=== PATIENT | male | born 1985 | race Caucasian/White ===

== ENCOUNTER 2016-11-08 16:58 | Inpatient (IN) | payer OTHER ==
[~2016-11-08] VITALS: Ht 175.3 cm; Wt 80.1 kg
[2016-11-08] MEDS ORDERED: ONDANSETRON 4 MG INJ IV STA ×2 (17:30→19:59)
[2016-11-08] MEDS ORDERED: KETOROLAC 15 MG INJ IV STA (17:30)
[2016-11-08] MEDS ORDERED: SOD CHLORIDE 0.9% 1,000 ML IV STA (17:30)
[2016-11-08] MEDS ORDERED: morphine 4 MG/ML VIAL IV STA (17:30)
[2016-11-08 18:06] LABS: ADD SCAN DIFF NO
[2016-11-08 18:08] LABS: BASOPHIL # 0.1 10^3/ul (0.0-0.1); BASOPHILS % 0.4 % (0.0-2.0); EOSINOPHILS # 0.4 10^3/ul (0.0-0.5); EOSINOPHILS % 3.9 % (0.0-7.0); HEMATOCRIT 46.2 % (42.0-52.0); HEMOGLOBIN 15.2 g/dl (14.0-18.0); LYMPHOCYTES # 2.3 10^3/ul (0.8-2.9); LYMPHOCYTES % 20.5 % (15.0-51.0); MEAN CORPUSCULAR HEMOGLOBIN 28.8 pg (29.0-33.0); MEAN CORPUSCULAR HGB CONC 32.9 g/dl (32.0-37.0); MEAN CORPUSCULAR VOLUME 87.7 fl (82.0-101.0); MEAN PLATELET VOLUME 10.9 fl (7.4-10.4); MONOCYTE # 0.5 10^3/ul (0.3-0.9); MONOCYTES % 4.6 % (0.0-11.0); NEUTROPHIL # 7.9 10^3/ul (1.6-7.5); NEUTROPHILS % 69.9 % (39.0-77.0); PLATELET COUNT 225 10^3/UL (140-415); RED BLOOD COUNT 5.27 10^6/ul (4.70-6.10); RED CELL DISTRIBUTION WIDTH 13.3 % (11.5-14.5); WHITE BLOOD COUNT 11.4 10^3/ul (4.8-10.8)
[2016-11-08 18:24] LABS: INR 0.93; PROTIME 12.5 Sec (12.2-14.2)
[2016-11-08 18:32] LABS: ALBUMIN/GLOBULIN RATIO 1.78; BILIRUBIN,INDIRECT 0.2 mg/dl (0-1.1); BILIRUBIN,TOTAL 0.2 mg/dl (0.2-1.3); CALCIUM 9.4 mg/dl (8.4-10.2); CREATININE 0.89 mg/dl (0.61-1.24); POTASSIUM 4.3 mmol/L (3.5-5.1); TOTAL PROTEIN 7.8 g/dl (6.1-8.1)
[2016-11-08 19:02] LABS: ADD UMIC YES; UR ASCORBIC ACID NEGATIVE (NEGATIVE); UR BILIRUBIN (Dip) NEGATIVE (NEGATIVE); UR BLOOD (Dip) 1+ mg/dL (NEGATIVE); UR CLARITY CLEAR (CLEAR); UR COLOR YELLOW (YELLOW); UR GLUCOSE (Dip) NEGATIVE (NEGATIVE); UR KETONES (Dip) TRACE mg/dL (NEGATIVE); UR LEUKOCYTE ESTERASE (Dip) NEGATIVE Leu/ul (NEGATIVE); UR NITRITE (Dip) NEGATIVE (NEGATIVE); UR RBC 4 /HPF (0-5); UR SPECIFIC GRAVITY (Dip) 1.014 (1.003-1.030); UR TOTAL PROTEIN (Dip) NEGATIVE (NEGATIVE); UR UROBILINOGEN (Dip) NEGATIVE (NEGATIVE)
[2016-11-08] MEDS ORDERED: OXYCODONE/ACETAMINOPHEN (5/325) TAB PO ONE (19:30)
[2016-11-08] MEDS ORDERED: HYDROmorphONE 1 MG/ML SYG IV STA (19:55)
[2016-11-08] MEDS ORDERED: SOD CHLORIDE 0.9% 1,000 ML IV ONE (20:00)
[2016-11-08] MEDS ORDERED: IOHEXOL 300MG/ML 150 ML BTL ONE (20:07)
[2016-11-08] MEDS ORDERED: SOD CHLORIDE 0.9% 0 ML ONE (20:07)
[2016-11-08] MEDS ORDERED: SOD CHLORIDE 0.9% 250 ML ONE (20:08)
[2016-11-08 21:09] VITALS: Ht 175.3 cm; Wt 80.1 kg
[2016-11-08 21:10] VITALS: BP 120/82; PULSE 84; RESP 18
--- NOTE | 2016-11-08 21:16 | RADRPT ---
PROCEDURE: CT abdomen and pelvis with contrast. CLINICAL INDICATION: Inguinal hernia. Pain. TECHNIQUE: CT of the abdomen/pelvis was performed utilizing axial images with reconstructions in s agittal and coronal planes following the intravenous administration of 100 cc of Omnipaque-300 contr ast. The administered radiation dose is CTDI 9.73 mGy, DLP 593.92 mGy-cm. One or more of the followi ng dose reduction techniques were used: Automated exposure control, Adjustment of the mA and/or kV a ccording to patient size, or Use of iterative reconstruction technique. COMPARISON: Recent CT of the abdomen/pelvis from November 06, 2016. Groin ultrasound from August 06, 2016 . FINDINGS: Lung bases: The lung bases are clear.The heart is normal size without pericardial effusion. CT ABDOMEN: Gastrointestinal tract: There is no bowel obstruction.No abnormal colonic wall thickening is identif ied.There is no pneumoperitoneum.There is a 4.2 cm anteroposteriorly by 15 cm cranial caudal by 7 cm transverse right inguinal hernia. This contains the cecum as well as the terminal ileum and append ix. There are mild stranding along the lateral aspect of the descending colon just superior to the right inguinal canal which may represent mild inflammatory changes. There is no evidence of large b owel obstruction. No small bowel obstruction is identified. The appendix is normal size without inf lammatory changes. There is hyperdensity with punctate calcification within the distal appendix like ly representing debris/appendicolith. Liver: The liver is normal in size without focal lesion.There is no intrahepatic ductal dilatation. Gallbladder: The gallbladder is grossly unremarkable. Pancreas: The pancreas is grossly unremarkable. Spleen: The spleen is normal in size without focal lesion. Kidneys: The kidneys are normal in size and contour.No renal calculi are identified.There is no evid ence of hydronephrosis. There is a prominent left greater than right extra renal pelvises. Adrenal glands: The bilateral adrenal glands are unremarkable. Retroperitoneum: There is no retroperitoneal adenopathy.The aorta is normal in caliber. CT PELVIS: Pelvic organs: The prostate is mildly enlarged measuring 4.5 cm. There is a 1.2 cm coarse calcifica tion within the inferior aspect of the prostate which is indeterminate. Bladder: There is a 1.3 cm calcific appearing density abutting the anterior wall of the bladder (juana ge 147 series 3) which may represent gallbladder calculus versus other etiologies. There is no pelvic free fluid.No pelvic adenopathy is identified. Osseous structures: No destructive lytic or blastic osseous lesion is identified. IMPRESSION: No significant change from recent examination. 1. Large right inguinal hernia which contains the cecum, appendix, as well as the terminal ileum. There is mild stranding along the lateral aspect of the descending colon which may represent mild in flammatory changes. There is no evidence of small or large bowel obstruction. Correlate with physic al examination to exclude incarceration. 2. There is a 1.3 cm calcific appearing density abutting the anterior wall of the bladder which may represent a bladder calculus versus other etiologies. Follow-up imaging may be performed as clinica lly warranted. Correlate clinically. 3. The prostate is mildly enlarged measuring 4.5 cm. There is a 1.2 cm coarse calcification within the inferior aspect of the prostate which is indeterminate but may be related to chronic infectious/ inflammatory etiologies. 4. Hyperdensity with punctate calcification within the distal appendix likely representing debris/a ppendicolith. Further findings as detailed above. These findings were discussed with Dr. Maximilian Barger at 09:14 p.m. on November 08, 2016. RPTAT: HVF .Titi Estrella MD, Date Time Electronically viewed and signed by .Titi Estrella MD, on 11/08/2016 21:15 .F/
[2016-11-08] MEDS ORDERED: HYDROCODONE/APAP (5/325) TAB PO PRN (23:00)
[2016-11-08] MEDS ORDERED: morphine 2 MG INJ IV PRN (23:00)
[2016-11-08] MEDS ORDERED: NACL 0.9% 3 ML SYG IV SCH (23:00)
[2016-11-08] MEDS ORDERED: ZOLPIDEM 5 MG TAB PO PRN (23:00)
[2016-11-08] MEDS ORDERED: DOCUSATE SODIUM 100 MG CAP PO PRN (23:00)
[2016-11-08] MEDS ORDERED: ACETAMINOPHEN 325 MG TAB PO PRN (23:00)
[2016-11-08] MEDS ORDERED: ONDANSETRON 4 MG INJ IV PRN (23:00)
--- NOTE | 2016-11-08 23:02 | ERA ---
ER Documentation Chief Complaint Date/Time DATE: 11/08/16 TIME: 22:55 Chief Complaint inguinal hernia pain x 5 days; was seen [facility] today HPI 31-year-old man complains of increasing right inguinal hernia pain and swelling. He states he has had this hernia for years and swelling and pain has been increasing over the last 6 months and even more so over the last week. He was seen at [facility] emergency department today and referred to [facility] as [facility] is his capitated hospital. He had a CT scan of the abdomen and pelvis about 4 days ago which revealed a very large right inguinal hernia. He denies fevers or chills although has had nausea and multiple episodes of vomiting today last p.o. intake was about 8 hours prior to arrival, but he states he vomited shortly after. Patient denies chest pain or shortness of breath, no diarrhea, no blood per rectum or melena, no fevers or chills, no weight loss. ROS All systems reviewed and are negative except as per history of present illness. Medications Home Meds No Active Prescriptions or Reported Meds Allergies Allergies: Coded Allergies: No Known Allergy (Unverified , 11/08/16) PMhx/Soc None Medical and Surgical Hx: pt denies Medical Hx, pt denies Surgical Hx History of Surgery: No Anesthesia Reaction: No Hx Neurological Disorder: No Hx Respiratory Disorders: No Hx Cardiac Disorders: No Hx Psychiatric Problems: No Hx Miscellaneous Medical Probl: No Hx Alcohol Use: No Hx Substance Use: No Hx Tobacco Use: No Smoking Status: Never smoker FmHx Family History: No diabetes Physical Exam Vitals Vital Signs Date Time Temp Pulse Resp B/P Pulse Ox O2 Delivery O2 Flow Rate FiO2 11/08/16 17:01 97.5 60 18 124/64 100 Physical Exam GENERAL: Well-developed, well-nourished, in moderate pain, afebrile HEENT: Moist mucous membranes, pink conjunctiva, no cervical spine tenderness or step-off deformities, no goiter, no jaundice or icterus, extraocular movements intact without pain. No submandibular induration, and no pharyngeal erythema NEURO: Alert and oriented 3, cranial nerves II through XII intact bilaterally, pupils equal round reactive to light, no focal deficits or facial asymmetry, sensation intact distally Strength 5/5 in upper and lower extremities bilaterally CARDIAC: Regular rate and rhythm, no murmurs rubs or gallops LUNGS: Clear bilaterally no wheezing crackles or stridor ABDOMEN: Large, grapefruit sized right inguinal and scrotal mass mildly tender to touch, soft, without rigidity. Abdomen generally soft without guarding or rigidity. SKIN: Warm and dry to touch, no abrasions, contusions, or hematomas, no lacerations, no ecchymosis, no target lesions, and without ulcers EXTREMITIES: No clubbing cyanosis or edema, calves are bilaterally symmetrical, no Homans sign, no popliteal cord sign. Distal pulses equal and bilateral PSYCH: Normal affect without agitation or irritability Result Diagram: 11/08/16 1745 11/08/16 1745 Results 24 hrs Laboratory Tests Test 11/08/16 17:45 11/08/16 18:45 White Blood Count 11.410^3/ul Red Blood Count 5.2710^6/ul Hemoglobin 15.2g/dl Hematocrit 46.2% Mean Corpuscular Volume 87.7fl Mean Corpuscular Hemoglobin 28.8pg Mean Corpuscular Hemoglobin Concent 32.9g/dl Red Cell Distribution Width 13.3% Platelet Count 95628^3/UL Mean Platelet Volume 10.9fl Neutrophils % 69.9% Lymphocytes % 20.5% Monocytes % 4.6% Eosinophils % 3.9% Basophils % 0.4% Nucleated Red Blood Cells % 0.0/100WBC Neutrophils # 7.910^3/ul Lymphocytes # 2.310^3/ul Monocytes # 0.510^3/ul Eosinophils # 0.410^3/ul Basophils # 0.110^3/ul Nucleated Red Blood Cells # 0.010^3/ul Prothrombin Time 12.5Sec Prothrombin Time Ratio 1.0 INR International Normalized Ratio 0.93 Sodium Level 139mmol/L Potassium Level 4.3mmol/L Chloride Level 103mmol/L Carbon Dioxide Level 25mmol/L Anion Gap 15 Blood Urea Nitrogen 16mg/dl Creatinine 0.89mg/dl Glucose Level 100mg/dl Calcium Level 9.4mg/dl Total Bilirubin 0.2mg/dl Direct Bilirubin 0.00mg/dl Indirect Bilirubin 0.2mg/dl Aspartate Amino Transf (AST/SGOT) 25IU/L Alanine Aminotransferase (ALT/SGPT) 37IU/L Alkaline Phosphatase 70IU/L Total Protein 7.8g/dl Albumin 5.0g/dl Globulin 2.80g/dl Albumin/Globulin Ratio 1.78 Lipase 109U/L Urine Color YELLOW Urine Clarity CLEAR Urine pH 6.0 Urine Specific [place] 1.014 Urine Ketones TRACEmg/dL Urine Nitrite NEGATIVEmg/dL Urine Bilirubin NEGATIVEmg/dL Urine Urobilinogen NEGATIVEmg/dL Urine Leukocyte Esterase NEGATIVELeu/ul Urine Microscopic RBC 4/HPF Urine Microscopic WBC 1/HPF Urine Hemoglobin 1+mg/dL Urine Glucose NEGATIVEmg/dL Urine Total Protein NEGATIVEmg/dl Current Medications Medications (Trade) Dose Ordered Sig/Stanley Route PRN Reason Start Time Stop Time Status Last Admin Dose Admin Sodium Chloride (NS) 1,000 ml @ 1,000 mls/hr Q1H STAT IV 11/08/16 17:30 11/08/16 18:29 DC 11/08/16 18:19 Morphine Sulfate (morphine) 4 mg ONCE STAT IV 11/08/16 17:30 11/08/16 17:31 DC 11/08/16 18:19 Ondansetron HCl (Zofran Inj) 4 mg ONCE STAT IV 11/08/16 17:30 11/08/16 17:31 DC 11/08/16 18:19 Ketorolac Tromethamine (Toradol) 15 mg ONCE STAT IV 11/08/16 17:30 11/08/16 17:31 DC 11/08/16 18:19 Oxycodone/ Acetaminophen (Percocet (5/ 325)) 1 tab ONCE ONCE PO 11/08/16 19:30 11/08/16 19:31 DC 11/08/16 19:42 Hydromorphone HCl (Dilaudid) 1 mg ONCE STAT IV 11/08/16 19:55 11/08/16 20:00 DC 11/08/16 20:07 Ondansetron HCl 4 mg 4 mg ONCE STAT IV 11/08/16 19:59 11/08/16 20:00 DC 11/08/16 20:07 Sodium Chloride (NS) 1,000 ml @ 1,000 mls/hr Q1H ONCE IV 11/08/16 20:00 11/08/16 20:59 DC 11/08/16 20:07 IV Flush 10 ml 10 ml STK-MED ONCE .ROUTE 11/08/16 20:07 11/08/16 20:08 DC 11/08/16 20:31 Sodium Chloride (NS) 0 ml @ ud STK-MED ONCE .ROUTE 11/08/16 20:07 11/08/16 20:08 DC Iohexol 150 ml 150 ml STK-MED ONCE .ROUTE 11/08/16 20:07 11/08/16 20:08 DC 11/08/16 20:31 Sodium Chloride (NS) 250 ml @ ud STK-MED ONCE .ROUTE 11/08/16 20:08 11/08/16 20:09 DC 11/08/16 20:31 Procedures/MDM IV line was established patient was placed on braille coder rhythm strip revealed a sinus rhythm at about 80 bpm with upright P and T waves. Patient was afebrile. I administered 1 L normal saline intravenously, morphine 4 mg IV, Zofran 4 mg IV , Toradol 15 mg IV with minimal improvement in pain. CBC and electrolytes are unremarkable, liver function tests were normal, urinalysis negative for infection, coagulation profile normal. CT scan of the abdomen and pelvis was performed revealing a large right inguinal hernia with the cecum parts of the terminal ileum, and appendix located within the scrotum. No obvious strangulation or incarceration noted. Please refer to radiologist dictation for full report. I obtained consultation with surgeon concrete pipe machine operator Dr. Pemberton regarding the patient's presentation and symptomatology, he kindly agreed to consult the patient. Patient will be admitted to [facility] for continued medical management, IV hydration, and pain management. Patient admitted to [facility] to hospitalist team. Departure Diagnosis: Primary Impression: Hernia Additional Impressions: Intractable pain Vomiting Qualified Code: R11.2 - Intractable vomiting with nausea, unspecified vomiting type Condition: WILLIE Valenzuela MD Nov 08, 2016 23:02
[2016-11-08] MEDS: D5W-0.45 NACL + KCL 20 MEQ 1,000 ML IV SCH (23:26)
--- NOTE | 2016-11-09 02:11 | HP ---
DATE OF ADMISSION: 11/08/2016 TIME: 11:30 p.m. CHIEF COMPLAINT: Right groin pain. HISTORY OF PRESENT ILLNESS: The patient is a 31-year-old male with no significant medical history. The patient states that he has had pain in his right groin for the past 2 months. Today it was ass ociated nausea and vomiting. In the ED, the patient had an abdominopelvic CT which showed a large r ight inguinal hernia which contained the cecum and appendix as well as terminal ileum. The patient denies any nausea or vomiting at this time. He has no other complaints. He has not had these sympt oms prior to a few months ago. PAST MEDICAL HISTORY: Denies. PAST SURGICAL HISTORY: Denies. HOME MEDICATIONS: None. ALLERGIES: NO KNOWN DRUG ALLERGIES. FAMILY HISTORY: Denies. SOCIAL HISTORY: Denies any alcohol, tobacco, or drug abuse. REVIEW OF SYSTEMS: A 12- point review of systems negative except as stated in HPI. PHYSICAL EXAMINATION: VITAL SIGNS: Temperature is 97.8, pulse 84, respiratory rate 18, BP is 120/82, saturation 99% on ro om air. GENERAL: No acute distress, alert and oriented. HEENT: Normocephalic, atraumatic. LUNGS: Clear to auscultation. CARDIOVASCULAR: Regular rate and rhythm. ABDOMEN: Nondistended, nontender, soft. EXTREMITIES: No clubbing, cyanosis, or edema. LABORATORY TESTS: White count is 11.4, hemoglobin 16.2, platelets 225. Chemistry within normal metcalf its. DIAGNOSTICS: Abdominopelvic CT shows a large right inguinal hernia which contains the cecum and tito endix as well as terminal ileum. There are some inflammatory changes. No evidence of small or larg e bowel obstruction. There is 1.3 cm calcified appearing density abutting the anterior wall of the bladder which may represent a bladder calculus versus other etiologies. The prostate is mildly enla rged. There is a possible appendicolith. ASSESSMENT AND PLAN: 1. Right groin pain secondary to a large right inguinal hernia. At this time, there is no evidence of bowel obstruction. There does not appear to be any incarceration. Dr. Pemberton of surgery has be en consulted in the ED. Will follow up with his recommendations. No indication for antibiotics at this time as there is no shift on CBC. Patient appears clinically stable and has no fever. 2. Leukocytosis. This is mild and likely reactive to underlying pain. Once again, there is no garrick ft, no fever and hence the white count is likely reactive. No indication for antibiotics at this ti me. 3. Prophylaxis. SCDs. Dictated By: LESA MOYA MD BS/NTS Conf#: [id number] DID#: [id number]
[2016-11-09 04:55] LABS: ADD SCAN DIFF NO
[2016-11-09 05:09] LABS: BASOPHIL # 0.1 10^3/ul (0.0-0.1); BASOPHILS % 0.7 % (0.0-2.0); EOSINOPHILS # 0.4 10^3/ul (0.0-0.5); EOSINOPHILS % 5.1 % (0.0-7.0); HEMATOCRIT 42.2 % (42.0-52.0); HEMOGLOBIN 14.1 g/dl (14.0-18.0); LYMPHOCYTES % 28.1 % (15.0-51.0); MEAN CORPUSCULAR HEMOGLOBIN 29.6 pg (29.0-33.0); MEAN CORPUSCULAR HGB CONC 33.4 g/dl (32.0-37.0); MEAN CORPUSCULAR VOLUME 88.7 fl (82.0-101.0); MEAN PLATELET VOLUME 10.9 fl (7.4-10.4); MONOCYTE # 0.5 10^3/ul (0.3-0.9); MONOCYTES % 6.6 % (0.0-11.0); NEUTROPHIL # 4.3 10^3/ul (1.6-7.5); NEUTROPHILS % 58.9 % (39.0-77.0); PLATELET COUNT 203 10^3/UL (140-415); RED BLOOD COUNT 4.76 10^6/ul (4.70-6.10); RED CELL DISTRIBUTION WIDTH 13.2 % (11.5-14.5); WHITE BLOOD COUNT 7.3 10^3/ul (4.8-10.8)
[2016-11-09 05:49] LABS: CALCIUM 8.8 mg/dl (8.4-10.2); CHOL/HDL RATIO 4.2 RATIO; CREATININE 0.82 mg/dl (0.61-1.24); MAGNESIUM 2.2 mg/dl (1.7-2.5); PHOSPHORUS 3.8 mg/dl (2.5-4.9); POTASSIUM 3.8 mmol/L (3.5-5.1)
[2016-11-09 07:31] VITALS: BP 109/61; RESP 18
[2016-11-09] MEDS: D5W-0.45 NACL + KCL 20 MEQ 1,000 ML IV SCH ×2 (10:19→20:30)
--- NOTE | 2016-11-09 12:30 | CONS ---
[facility] INITIAL INPATIENT CONSULTATION NOTE DATE OF CONSULTATION: 11/09/2016 PLACE OF SERVICE: [facility], 4th floor. ASSESSMENT AND PLAN: This is a very pleasant 31-year-old gentleman with comorbid a BMI 26.1, presenting with 8 month history of right inguinal hernia which has been worsening. The patient has sought care over the last week without any intervention otherwise. I do not believe that the patient is safe to be discharged, and this issue should be repaired as soon as possible in a semi-elective fashion. We have set up the operating room for his surgery which is going to be laparoscopic, possible open right inguinal hernia repair, likely with mesh. I have explained to him the increased risk of recurrence given the size of this hernia as well as increased risk of postoperative hemorrhage which is seen up to about 30 to 40% of the time after this size hernia repair. I also very carefully reviewed the extreme importance of him being very careful about no lifting more than 20 to 30 pounds over the course of the next 4 to 6 weeks to allow this area to heal completely. We also reviewed the rest of the risks, benefits, and alternatives which included the usual surgical issues of infection, possible hole in the bowel, possible infection of the mesh requiring significant surgery to remove it and its concomitant sequelae, as well as issues with blood clots, PE, lung or heart problems, and even . The patient appeared to understand and agreed with the plan. With above assessment, I recommended the followin. Set up the patient for a semi-elective laparoscopic, possible open right inguinal hernia repair with possible mesh during this hospitalization. Thank you again for allowing us to participate in the care of this very pleasant gentleman and I am certain his wonderful family. If there are any questions, please do feel free to contact me at [phone]. UPDATED CLINICAL SUMMARY: This is a very pleasant 31-year-old gentleman with comorbidity of BMI 26.1 and an 8 history of right inguinal hernia with bowel within it, admitted through the emergency department at [facility] on 11/10/2016 with the same issue with his right inguinal hernia. COMORBIDITIES: 1. BMI 26.1. 2. 8 month history of worsening right inguinal hernia. 3. Possible bladder calculus (1.3 cm calcified appearing density abutting the anterior wall of the bladder). 4. Mildly enlarged prostate measuring 4.5 cm with a 1.2 cm coarse calcification within the inferior aspect of the prostate which is indeterminate but may be related to chronic infectious/inflammatory etiologies. 5. Hyperdensity with punctate calcification within the distal appendix likely representing debris/appendicolith. DATE OF ADMISSION: 11/08/2016 HISTORY OF PRESENT ILLNESS: The patient is a very pleasant 31-year-old gentleman with above-mentioned comorbidities whom we were kindly asked to consult regarding management of his right inguinal hernia. The patient has had this hernia for the last 8 months. He reports the hernia to be bigger now than when it first started. His work includes heavy lifting. He was seen, per his own report, at an emergency department 1 or 2 days prior to his presentation to our hospital and was sent home without intervention. He also reported having had a CT scan a few days back as an outpatient. The patient did have nausea and vomiting and had pain in the emergency department which has since resolved with pain medications. Currently, no other major complaints. ALLERGIES: NO KNOWN DRUG ALLERGIES. MEDICATIONS: None at home. SOCIAL HISTORY: The patient does not report any smoking, drinking, or intravenous drug use. 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 FAMILY HISTORY: No mention of major medical, surgical, or oncologic problems in the family. REVIEW OF SYSTEMS: Other than the above-mentioned, there are no other pertinent positives or pertinent negatives in a complete 14-point review of systems. PHYSICAL EXAMINATION: GENERAL: The patient appears to be a very pleasant gentleman of descent, appearing stated age, lying in bed comfortably and in no acute distress. BMI is 26.1. VITAL SIGNS: Temperature 98.1, blood pressure 109/61, pulse 64, respiratory rate 18, pulse oximetry 99% on room air. HEENT: Normocephalic and atraumatic. Extraocular muscles and hearing are grossly intact bilaterally and symmetrically. Sclerae are nonicteric. Oral cavity is clear; oral mucosa appeared to be pink and moist. Dentition: fair. NECK: Supple. There is no lymphadenopathy or JVD. There is no submental, submandibular or supraclavicular lymphadenopathy. CHEST: Rises symmetrically with each breath; patient is breathing comfortably. There are no audible wheezes, rales or rhonchi on the gross exam. HEART: Pulse is regular and palpable on the right wrist. Capillary refill was normal. Carotid pulses are palpable bilaterally and symmetrically in the neck. EXTREMITIES: Lower extremities contain no pitting edema around the ankles bilaterally and symmetrically. ABDOMEN: Soft, nontender, and nondistended. There is no evidence of organomegaly, caput medusae, engorged subcutaneous veins, or ascites. There are no peritoneal signs or guarding. His right groin contains a large 10 to 12 cm in diameter bulge which appears to be soft and nontender to palpation consistent with diagnosis of right inguinal hernia. It is reducible with effort. No changes of skin coloration overlying it. The patient is wearing a truss belt. GENITOURINARY: Genitals otherwise appeared to be normal. SKIN: Appears to be pink and feels warm to touch. NEUROLOGIC: Awake, alert, and follows commands appropriately. LABORATORY DATA: Admission white blood cell count of 11.4, it is down to 7.3, hemoglobin 14.1, platelets 203. Electrolytes are all normal with creatinine 0.82, CO2 of 25. Hemoglobin A1c 5.5. Total bilirubin 0.2, AST 25, ALT 37, alkaline phosphatase 70, albumin 5.0 before resuscitation. Lipase 109, triglycerides 64. INR 1.0. Urinalysis showed no nitrite or leukocyte esterase. IMAGING: The patient had an abdominal and pelvic CT scan on 11/08/2016 the findings of which I reviewed above. I personally reviewed all the available and pertinent images, and I agree in general with their overall reported findings. No evidence of pneumatosis, free air, free fluid, or bowel obstruction. Dictated By: FLOR CARRILLO/CARLOS Conf#: [id number] DID#: [id number]
--- NOTE | 2016-11-09 13:56 | PN ---
Date/Time of Note Date/Time of Note DATE: 11/09/16 TIME: 13:39 Assessment/Plan VTE Prophylaxis VTE Prophylaxis Intervention: SCD's Lines/Catheters IV Catheter Type (from Nrsg): Peripheral IV Urinary Cath still in place: No Assessment/Plan Assessment/Plan IMPRESSION 1. Large right inguinal hernia which contains the cecum, appendix, as well as the terminal ileum 2. right Groin pain 2/2 above 3. Hx of Nephrolithiasis PLAN - Pt is currently tolerating diet. plan for surgical intervention likely tomorrow by Dr. Pemberton - Will cont pain mgmt Subjective 24 Hr Interval Summary Free Text/Dictation c/o intermittent pain in area of right groin Exam/Review of Systems Vital Signs Vitals Vital Signs Date Time Temp Pulse Resp B/P Pulse Ox O2 Delivery O2 Flow Rate FiO2 11/09/16 07:31 98.1 64 18 109/61 99 11/08/16 21:10 Room Air Intake and Output 11/08/16 11/08/16 11/09/16 15:00 23:00 07:00 Intake Total 550 ml Output Total 200 ml 900 ml Balance -200 ml -350 ml Exam Constitutional: alert, oriented, well developed Head: atraumatic, normocephalic Eyes: EOMI, PERRL Respiratory: clear to auscultation, normal air movement Cardiovascular: nl pulses, regular rate and rhythm Gastrointestinal: soft, tender Extremities: normal pulses Results Result Diagram: 11/09/16 0430 11/09/16 0430 Results 24 hrs Laboratory Tests Test 11/08/16 17:45 11/08/16 18:45 11/09/16 04:30 White Blood Count 11.4 H 7.3 # Red Blood Count 5.27 4.76 Hemoglobin 15.2 14.1 Hematocrit 46.2 42.2 Mean Corpuscular Volume 87.7 88.7 Mean Corpuscular Hemoglobin 28.8 L 29.6 Mean Corpuscular Hemoglobin Concent 32.9 33.4 Red Cell Distribution Width 13.3 13.2 Platelet Count 225 203 Mean Platelet Volume 10.9 H 10.9 H Neutrophils % 69.9 58.9 Lymphocytes % 20.5 28.1 Monocytes % 4.6 6.6 Eosinophils % 3.9 5.1 Basophils % 0.4 0.7 Nucleated Red Blood Cells % 0.0 0.0 Neutrophils # 7.9 H 4.3 Lymphocytes # 2.3 2.0 Monocytes # 0.5 0.5 Eosinophils # 0.4 0.4 Basophils # 0.1 0.1 Nucleated Red Blood Cells # 0.0 0.0 Prothrombin Time 12.5 Prothrombin Time Ratio 1.0 INR International Normalized Ratio 0.93 Sodium Level 139 141 Potassium Level 4.3 3.8 Chloride Level 103 108 Carbon Dioxide Level 25 25 Anion Gap 15 12 Blood Urea Nitrogen 16 13 Creatinine 0.89 0.82 Glucose Level 100 93 Calcium Level 9.4 8.8 Total Bilirubin 0.2 Direct Bilirubin 0.00 Indirect Bilirubin 0.2 Aspartate Amino Transf (AST/SGOT) 25 Alanine Aminotransferase (ALT/SGPT) 37 Alkaline Phosphatase 70 Total Protein 7.8 Albumin 5.0 H Globulin 2.80 Albumin/Globulin Ratio 1.78 Lipase 109 Urine Color YELLOW Urine Clarity CLEAR Urine pH 6.0 Urine Specific [place] 1.014 Urine Ketones TRACE A Urine Nitrite NEGATIVE Urine Bilirubin NEGATIVE Urine Urobilinogen NEGATIVE Urine Leukocyte Esterase NEGATIVE Urine Microscopic RBC 4 Urine Microscopic WBC 1 Urine Hemoglobin 1+ H Urine Glucose NEGATIVE Urine Total Protein NEGATIVE Hemoglobin A1c 5.5 Phosphorus Level 3.8 Magnesium Level 2.2 Triglycerides Level 64 Cholesterol Level 167 LDL Cholesterol, Calculated 115 HDL Cholesterol 39 Cholesterol/HDL Ratio 4.2 Medications Medications Current Medications Potassium Chloride/Dextrose/ Sod Cl (D5-1/2ns + KCl 20 Meq) 1,000 ml @ 100 mls/ hr Q10H IV Last administered on 11/09/16t 10:19; Admin Dose 100 MLS/HR; Start 11/08/16 at 22:37 Ondansetron HCl (Zofran Inj) 4 mg Q6H PRN IV NAUSEA AND/OR VOMITING; Start at 23:00 Acetaminophen (Tylenol Tab) 650 mg Q6H PRN PO PAIN LEVEL 1-3 OR FEVER; Start at 23:00 Acetaminophen/ Hydrocodone Bitart ([place] (5/325)) 1 tab Q6H PRN PO MODERATE PAIN LEVEL 4-6; Start 11/08/16 at 23:00 Morphine Sulfate (morphine) 2 mg Q4H PRN IV SEVERE PAIN LEVEL 7-10; Start 11/08 at 23:00 Docusate Sodium (Colace) 100 mg Q12H PRN PO CONSTIPATION; Start 11/08/16 at 23: 00 Zolpidem Tartrate (Ambien) 5 mg QHS PRN PO SLEEP; Start 11/08/16 at 23:00 AZEEM HENSLEY MD Nov 09, 2016 13:49
[2016-11-09 20:14] VITALS: BP 116/69; RESP 16
[2016-11-10] VITALS (14 sets, daily range): BP systolic 109–134; BP diastolic 58–74; PULSE 65–88; RESP 15–28
[2016-11-10] MEDS: D5W-0.45 NACL + KCL 20 MEQ 1,000 ML IV SCH ×3 (04:37→21:28)
[2016-11-10 05:19] LABS: ADD SCAN DIFF NO
[2016-11-10 05:35] LABS: BASOPHIL # 0.1 10^3/ul (0.0-0.1); BASOPHILS % 0.8 % (0.0-2.0); EOSINOPHILS # 0.4 10^3/ul (0.0-0.5); EOSINOPHILS % 6.1 % (0.0-7.0); HEMOGLOBIN 14.5 g/dl (14.0-18.0); LYMPHOCYTES # 2.5 10^3/ul (0.8-2.9); LYMPHOCYTES % 39.6 % (15.0-51.0); MEAN CORPUSCULAR HEMOGLOBIN 29.4 pg (29.0-33.0); MEAN CORPUSCULAR VOLUME 89.2 fl (82.0-101.0); MEAN PLATELET VOLUME 10.9 fl (7.4-10.4); MONOCYTE # 0.5 10^3/ul (0.3-0.9); MONOCYTES % 7.5 % (0.0-11.0); NEUTROPHIL # 2.9 10^3/ul (1.6-7.5); NEUTROPHILS % 45.4 % (39.0-77.0); PLATELET COUNT 219 10^3/UL (140-415); RED BLOOD COUNT 4.93 10^6/ul (4.70-6.10); RED CELL DISTRIBUTION WIDTH 13.5 % (11.5-14.5); WHITE BLOOD COUNT 6.4 10^3/ul (4.8-10.8)
[2016-11-10 05:55] LABS: ALBUMIN 4.2 g/dl (3.3-4.9); ALBUMIN/GLOBULIN RATIO 1.61; BILIRUBIN,INDIRECT 0.2 mg/dl (0-1.1); BILIRUBIN,TOTAL 0.2 mg/dl (0.2-1.3); CALCIUM 8.8 mg/dl (8.4-10.2); CREATININE 0.93 mg/dl (0.61-1.24); POTASSIUM 4.1 mmol/L (3.5-5.1); TOTAL PROTEIN 6.8 g/dl (6.1-8.1)
--- NOTE | 2016-11-10 12:45 | HPN ---
Date/Time of Note Date/Time of Note DATE: 11/10/16 TIME: 12:45 Interval H&P Admission Note Pt. seen H&P reviewed: No system changes Pt. seen H&P reviewed. No system changes (I attest that I have seen and examined the patient and reviewed the operation in detail, as well as its risks , benefits and alternatives of the operation). I attest that I have seen and examined the patient and reviewed in detail the operation, and its associated risks, benefits and alternative. I have answered all the patient's questions to the best of my ability and the patient wishes to proceed. Please refer to rest of electronic medical record for additional updates. FLOR PANTOJA M.D. Nov 10, 2016 12:45
--- NOTE | 2016-11-10 12:46 | PN ---
Date/Time of Note Date/Time of Note DATE: 11/10/16 TIME: 12:42 Assessment/Plan VTE Prophylaxis VTE Prophylaxis Intervention: SCD's Lines/Catheters IV Catheter Type (from Nrsg): Peripheral IV Urinary Cath still in place: No Assessment/Plan Chief Complaint/Hosp Course IMPRESSION 1. Large right inguinal hernia which contains the cecum, appendix, as well as the terminal ileum 2. right Groin pain 2/2 above 3. Hx of Nephrolithiasis 4. Leukocytosis, resolved continue to monitor PLAN -N.p.o., IV fluids, pain management plan for surgical intervention likely today by Dr. Pemberton - [place] [facility]raw pain mgmt Problems: Subjective 24 Hr Interval Summary Free Text/Dictation Patient continues to complain of abdominal discomfort N.p.o. Denies any chest pain or shortness of breath Exam/Review of Systems Vital Signs Vitals Vital Signs Date Time Temp Pulse Resp B/P Pulse Ox O2 Delivery O2 Flow Rate FiO2 11/10/16 08:49 98.7 64 18 116/67 98 11/08/16 21:10 Room Air Intake and Output 11/09/16 11/09/16 11/10/16 15:00 23:00 07:00 Intake Total 450 ml 2350 ml 1600 ml Output Total 2100 ml 1000 ml Balance 450 ml 250 ml 600 ml Exam General: The patient is well-developed, Not in acute distress. HEENT: Atraumatic, normocephalic. The pupils are equal and round . Neck: Supple with full range of motion. Chest: Normal expansion of the thorax during inspiration Lungs: Clear to auscultation bilaterally Heart: Normal S1-S2, Regular rhythm and rate. Abdomen: Soft , mildly tender, nondistended , bowel sounds are present. Extremities: Normal to inspection, no edema no cyanosis Neurologic: Normal mental status,The patient is awake, alert and oriented . Results Result Diagram: 11/10/16 0445 11/10/16 0445 Results 24 hrs Laboratory Tests Test 11/10/16 04:45 White Blood Count 6.4 Red Blood Count 4.93 Hemoglobin 14.5 Hematocrit 44.0 Mean Corpuscular Volume 89.2 Mean Corpuscular Hemoglobin 29.4 Mean Corpuscular Hemoglobin Concent 33.0 Red Cell Distribution Width 13.5 Platelet Count 219 Mean Platelet Volume 10.9 H Neutrophils % 45.4 Lymphocytes % 39.6 Monocytes % 7.5 Eosinophils % 6.1 Basophils % 0.8 Nucleated Red Blood Cells % 0.0 Neutrophils # 2.9 Lymphocytes # 2.5 Monocytes # 0.5 Eosinophils # 0.4 Basophils # 0.1 Nucleated Red Blood Cells # 0.0 Sodium Level 143 Potassium Level 4.1 Chloride Level 109 Carbon Dioxide Level 26 Anion Gap 12 Blood Urea Nitrogen 12 Creatinine 0.93 Glucose Level 98 Calcium Level 8.8 Total Bilirubin 0.2 Direct Bilirubin 0.00 Indirect Bilirubin 0.2 Aspartate Amino Transf (AST/SGOT) 20 Alanine Aminotransferase (ALT/SGPT) 33 Alkaline Phosphatase 62 Total Protein 6.8 # Albumin 4.2 Globulin 2.60 Albumin/Globulin Ratio 1.61 Medications Medications Current Medications Potassium Chloride/Dextrose/ Sod Cl (D5-1/2ns + KCl 20 Meq) 1,000 ml @ 100 mls/ hr Q10H IV Last administered on 11/10/16 08:33; Admin Dose 100 MLS/HR; Start 11/08/16 at 22:37 Ondansetron HCl (Zofran Inj) 4 mg Q6H PRN IV NAUSEA AND/OR VOMITING; Start at 23:00 Acetaminophen (Tylenol Tab) 650 mg Q6H PRN PO PAIN LEVEL 1-3 OR FEVER; Start at 23:00 Acetaminophen/ Hydrocodone Bitart ([place] (5/325)) 1 tab Q6H PRN PO MODERATE PAIN LEVEL 4-6 Last administered on 11/09/16 20:30; Admin Dose 1 TAB; Start at 23:00 Morphine Sulfate (morphine) 2 mg Q4H PRN IV SEVERE PAIN LEVEL 7-10; Start 11/08 at 23:00 Docusate Sodium (Colace) 100 mg Q12H PRN PO CONSTIPATION; Start 11/08/16 at 23: 00 Zolpidem Tartrate (Ambien) 5 mg QHS PRN PO SLEEP; Start 11/08/16 at 23:00 KISHOR JORDAN MD Nov 10, 2016 12:46
[2016-11-10] MEDS ORDERED: PROPOFOL 20 ML ONE ×2 (16:31→19:40)
[2016-11-10] MEDS ORDERED: ROCURONIUM 50 MG INJ ONE ×2 (16:31→18:20)
[2016-11-10] MEDS ORDERED: ROPIVACAINE 0.5 % 30 ML VIAL ONE ×2 (16:32→17:15)
[2016-11-10] MEDS ORDERED: MIDAZOLAM 1 MG/ML 2 ML INJ ONE (16:32)
[2016-11-10] MEDS ORDERED: FENTAnyl 50 MCG/ML VIAL ONE ×2 (16:32→18:45)
[2016-11-10] MEDS ORDERED: BUPIVACAINE 0.25%/EPI (SDV) 30 ML INJ ONE (17:03)
[2016-11-10] MEDS ORDERED: POLYMYXIN/BACITRACIN 1L IRRIG ONE (17:11)
[2016-11-10] MEDS ORDERED: METOCLOPRAMIDE 10 MG INJ ONE (17:59)
[2016-11-10] MEDS ORDERED: ONDANSETRON 4 MG INJ ONE (17:59)
[2016-11-10] MEDS ORDERED: KETOROLAC 30 MG INJ ONE (17:59)
[2016-11-10] MEDS ORDERED: ACETAMINOPHEN 1000MG/100ML IV 100 ML ONE (17:59)
[2016-11-10] MEDS ORDERED: DEXAMETHASONE 4 MG/ML 1 ML INJ ONE (17:59)
[2016-11-10] MEDS ORDERED: CEFAZOLIN 1 GM INJ ONE (18:20)
[2016-11-10] MEDS ORDERED: LABETALOL HCL 20MG INJ ONE (18:46)
[2016-11-10] MEDS ORDERED: NEOSTIGMINE 3 MG/3 ML SYRINGE ONE (19:32)
[2016-11-10] MEDS ORDERED: GLYCOPYRROLATE 0.4 MG INJ ONE (19:32)
--- NOTE | 2016-11-10 20:01 | OPR ---
Date/Time of Note Date/Time of Note DATE: 11/10/16 TIME: 19:57 Operative Report Procedure Description [facility] INPATIENT OPERATIVE NOTE PLACE OF SERVICE: [facility] DATE OF SURGERY: 11/10/2016 PREOPERATIVE DIAGNOSIS: 1. Right inguinal hernia, large, containing incarcerated colon 2. 8 month history of worsening right inguinal hernia. 3. Possible bladder calculus (1.3 cm calcified appearing density abutting the anterior wall of the bladder). 4. Mildly enlarged prostate measuring 4.5 cm with a 1.2 cm coarse calcification within the inferior aspect of the prostate which is indeterminate but may be related to chronic infectious/inflammatory etiologies. 5. Hyperdensity with punctate calcification within the distal appendix likely representing debris/appendicolith. 6. BMI 26.1. POSTOPERATIVE DIAGNOSIS: 1. Right inguinal hernia, large, containing incarcerated colon, viable 2. 8 month history of worsening right inguinal hernia. 3. Possible bladder calculus (1.3 cm calcified appearing density abutting the anterior wall of the bladder). 4. Mildly enlarged prostate measuring 4.5 cm with a 1.2 cm coarse calcification within the inferior aspect of the prostate which is indeterminate but may be related to chronic infectious/inflammatory etiologies. 5. Hyperdensity with punctate calcification within the distal appendix likely representing debris/appendicolith. 6. BMI 26.1. OPERATION: 1. Laparoscopic right inguinal hernia repair with mesh (10 cm x 15 cm Symbotex) SURGEON: Flor Pantoja M.D. CORRUGATOR MACHINE OPERATOR: Danika ANESTHESIA: General endotracheal tube anesthesia ANESTHESIOLOGIST: Funmi Faustin M.D. BRIEF SUMMARY: An otherwise uncomplicated but slightly difficult right inguinal hernia repair with mesh was performed with findings of large incarcerated but not strangulated and viable hernia contents mainly colon. UPDATED CLINICAL SUMMARY: This is a very pleasant 31-year-old gentleman with comorbidity of BMI 26.1 and an 8 history of right inguinal hernia with bowel within it, admitted through the emergency department at [facility] on 11/10/2016 with the same issue with his right inguinal hernia. COMORBIDITIES: 1. BMI 26.1. 2. 8 month history of worsening right inguinal hernia. 3. Possible bladder calculus (1.3 cm calcified appearing density abutting the anterior wall of the bladder). 4. Mildly enlarged prostate measuring 4.5 cm with a 1.2 cm coarse calcification within the inferior aspect of the prostate which is indeterminate but may be related to chronic infectious/inflammatory etiologies. 5. Hyperdensity with punctate calcification within the distal appendix likely representing debris/appendicolith. BRIEF HISTORY: The patient is a very pleasant 31-year-old gentleman with comorbid a BMI 26.1, presenting with 8 month history of right inguinal hernia which has been worsening. The patient has sought care over the last week without any intervention otherwise. I do not believe that the patient is safe to be discharged, and this issue should be repaired as soon as possible in a semi-elective fashion. We have set up the operating room for his surgery which is going to be laparoscopic, possible open right inguinal hernia repair, likely with mesh. I have explained to him the increased risk of recurrence given the size of this hernia as well as increased risk of postoperative hemorrhage which is seen up to about 30 to 40% of the time after this size hernia repair. I also very carefully reviewed the extreme importance of him being very careful about no lifting more than 20 to 30 pounds over the course of the next 4 to 6 weeks to allow this area to heal completely. We also reviewed the rest of the risks, benefits, and alternatives which included the usual surgical issues of infection, possible hole in the bowel, possible infection of the mesh requiring significant surgery to remove it and its concomitant sequelae, as well as issues with blood clots, PE, lung or heart problems, and even . The patient appeared to understand and agreed with the plan. After careful consideration of all the risks, benefits, and alternatives, the patient and family appeared to understand those risks and wished to proceed with surgery. For a detailed report of my consultation with patient and family, please refer to my separate consultation note. STATEMENT OF THE INFORMED CONSENT: The patient and family appeared to understand the risks of the operation to include, but not be limited to risk of postoperative pain and scar tissue, possible infection or bleeding requiring other interventions such as opening the wound, placement of drainage catheters, or other operative interventions; possible injury to surrounding to structures including bowel, bladder, bile duct, or blood vessels, or solid organs such as liver, kidney, or pancreas requiring other interventions or procedures; possible infection of the mesh causing significant increase in morbidity and mortality and requiring multiple interventions including but not limited to, placement of drainage catheters, imaging studies, as well as operative interventions with possible removal of the mesh and recurrence of hernia requiring future repair; possible other source of sepsis such as urinary tract infections or pneumonias, or other sources of potentially life threatening problems such as deep venous thrombus formation causing pulmonary embolism, myocardial arrhythmias and infarctions, and even . After careful consideration of all their options, the patient and family appeared to understand and wished to proceed with surgery. DESCRIPTION OF PROCEDURE: After obtaining informed consent, the patient was brought into the operating room and was placed in a normal supine position, where successful general endotracheal tube anesthesia was performed. Intravenous access was already in place and intravenous antimicrobials had been appropriately chosen and dosed prior to the operation. The patient's abdominal skin was prepped and draped from the nipple line down to the level of the upper thighs including the groin and in the usual sterile fashion. We then called a surgical time-out where the patient's identification, date of , nature of the operation, allergies, presence of intravenous antimicrobials, presence of needed equipment, and any other concerns were reviewed and agreed upon by all members of the operating room team. We then started the operation by placing a 5 mm [employer] trocar into the peritoneal space through a left lower quadrant 5 mm skin incision and using direct entry technique visualizing all the layers of the abdominal wall as we entered. Upon entry to the peritoneal space, we did not notice any obvious evidence of injury to underlying structures. We insufflated the abdominal cavity to a maximum pressure of 15 mmHg and again noted no significant adhesions in the region and found presence of a right inguinal hernia as suggested by the preoperative evaluation. We placed a 12 mm trocar in the umbilical space as well as another 5 mm trocar in the right lower quadrant all under direct visualization and after injecting the sites with quarter percent Marcaine with epinephrine. With our instruments in place, we had excellent visualization and access to the pelvis. By positioning the patient in a Trendelenburg left side down position, the contents of the inguinal hernia reduced with gentle pressure and gentle pulling of the intestine. There was no serosal tears or other damage to the bowel. The bowel appeared to be viable. We carefully inspected the left side and there was no evidence of any hernia on that side. We then placed a transverse cut above the area of the hernia in the standard fashion on the peritoneum and took down the peritoneal covering from the right groin region until we were able to dissect the sac completely from the cord structures. This was more difficult than normal given the large size of the hernia sac. After complete dissection of the sac from the cord structures, we ensured adequate hemostasis and then placed a 10 cm x 15 cm mesh (Symbotex) into the abdominal cavity and widely covered the area of the right hernia with mesh within the pocket. The mesh laid in the pocket nicely. We then secured the mesh onto the pubic tubercle and on the superior aspect and the most lateral aspect of the mesh using absorbable tacks. This was done under low insufflation. We again ensured adequate hemostasis and then covered the mesh with peritoneum using the peritoneal layer that we had taken down previously. After insuring adequate hemostasis, we removed all our equipment from the abdominal cavity including the pneumoperitoneum, closed the umbilical fascial defect using one figure-of- eight 0 Vicryl suture on a UR 6 needle, washed the wounds with copious amounts normal saline, injected the initial entry site with quarter percent Marcaine with epinephrine, and then closed the skin using interrupted 4 Monocryl suture. Light dressing was then applied. At the end of the operation, both the sponge count and needle count were reportedly correct x2. The patient tolerated the procedure without any reported complications. I also checked and made sure that both testicles are present within the scrotum after the operation was done. ESTIMATED BLOOD LOSS: 30 mL BLOOD OR BLOOD PRODUCT TRANSFUSIONS: None to my knowledge. SPECIMENS: None COMPLICATIONS: None. DISPOSITION: Recovery area. Disclaimer: Inadvertent spelling and grammatical errors are likely due to EHR/ dictation software use and do not reflect on the quality of delivered patient care. Also, please note that the electronic time recorded on this node does not necessarily reflect the actual time of the visit. FLOR PANTOJA M.D. Nov 10, 2016 20:01
[2016-11-10] MEDS ORDERED: HYDROmorphONE 1 MG/ML SYG IV PRN (20:30)
[2016-11-10] MEDS ORDERED: BISACODYL 10 MG SUPP PR PRN (20:30)
[2016-11-10] MEDS ORDERED: HYDROCODONE/APAP (5/325) TAB PO PRN (20:30)
[2016-11-10] MEDS ORDERED: NA PHOSPHATE/BIPHOS 133 ML ENEMA PR PRN (20:30)
[2016-11-10] MEDS ORDERED: DOCUSATE SODIUM 100 MG CAP PO PRN (20:30)
[2016-11-11 00:05] VITALS: BP 97/54; RESP 20
[2016-11-11] MEDS: HYDROmorphONE 1 MG/ML SYG IV PRN ×2 (04:48→14:22)
[2016-11-11 05:20] LABS: ADD SCAN DIFF NO
[2016-11-11 05:22] LABS: BASOPHILS % 0.2 % (0.0-2.0); HEMATOCRIT 42.9 % (42.0-52.0); HEMOGLOBIN 14.1 g/dl (14.0-18.0); LYMPHOCYTES # 0.9 10^3/ul (0.8-2.9); MEAN CORPUSCULAR HEMOGLOBIN 29.1 pg (29.0-33.0); MEAN CORPUSCULAR HGB CONC 32.9 g/dl (32.0-37.0); MEAN CORPUSCULAR VOLUME 88.6 fl (82.0-101.0); MEAN PLATELET VOLUME 11.1 fl (7.4-10.4); MONOCYTE # 0.6 10^3/ul (0.3-0.9); MONOCYTES % 5.1 % (0.0-11.0); NEUTROPHIL # 10.1 10^3/ul (1.6-7.5); NEUTROPHILS % 86.2 % (39.0-77.0); PLATELET COUNT 221 10^3/UL (140-415); RED BLOOD COUNT 4.84 10^6/ul (4.70-6.10); RED CELL DISTRIBUTION WIDTH 13.6 % (11.5-14.5); WHITE BLOOD COUNT 11.7 10^3/ul (4.8-10.8)
[2016-11-11 05:53] LABS: ALBUMIN 4.3 g/dl (3.3-4.9); ALBUMIN/GLOBULIN RATIO 1.65; BILIRUBIN,INDIRECT 0.5 mg/dl (0-1.1); BILIRUBIN,TOTAL 0.5 mg/dl (0.2-1.3); CALCIUM 9.2 mg/dl (8.4-10.2); CREATININE 0.85 mg/dl (0.61-1.24); MAGNESIUM 1.8 mg/dl (1.7-2.5); POTASSIUM 4.3 mmol/L (3.5-5.1); TOTAL PROTEIN 6.9 g/dl (6.1-8.1)
[2016-11-11] MEDS: D5W-0.45 NACL + KCL 20 MEQ 1,000 ML IV SCH ×2 (05:54→14:26)
[2016-11-11] MEDS: FAMOTIDINE 20 MG INJ IV SCH (08:51)
[2016-11-11 08:52] VITALS: BP 103/55; RESP 20
[2016-11-11] MEDS: ENOXAPARIN 40 MG/0.4 ML SYG SC SCH (08:52)
--- NOTE | 2016-11-11 13:03 | PN ---
Date/Time of Note Date/Time of Note DATE: 11/11/16 TIME: 12:58 Assessment/Plan VTE Prophylaxis VTE Prophylaxis Intervention: ambulation, SCD's Lines/Catheters IV Catheter Type (from Nrs): Peripheral IV Urinary Cath still in place: No Assessment/Plan Chief Complaint/Hosp Course IMPRESSION 1. Large right inguinal hernia which contains the cecum, appendix, as well as the terminal ileum Status post Laparoscopic right inguinal hernia repair with mesh (10 cm x 15 cm Symbotex) Continue pain medication, advance diet as per surgery recommendation 2. right Groin pain 2/2 above 3. Hx of Nephrolithiasis No acute issue at this time 4. Leukocytosis, continue cefazolin We will continue monitor patient closely for recommendation management treatment as clinical course Plan to discharge home tomorrow if cleared by general surgery Encourage ambulation Problems: Subjective 24 Hr Interval Summary Free Text/Dictation Postop day #1 patient complains of having minimal minimal abdominal discomfort Tolerating full liquid diet Negative for flatus or bowel movement Exam/Review of Systems Vital Signs Vitals Vital Signs Date Time Temp Pulse Resp B/P Pulse Ox O2 Delivery O2 Flow Rate FiO2 11/11/16 08:52 98.7 76 20 103/55 97 11/11/16 08:00 Nasal Cannula 2.0 Intake and Output 11/10/16 11/10/16 11/11/16 15:00 23:00 07:00 Intake Total 800 ml 1500 ml 1150 ml Output Total 70 ml 400 ml Balance 800 ml 1430 ml 750 ml Exam General: The patient is well-developed, Not in acute distress. HEENT: Atraumatic, normocephalic. The pupils are equal and round . Neck: Supple with full range of motion. Chest: Normal expansion of the thorax during inspiration Lungs: Clear to auscultation bilaterally Heart: Normal S1-S2, Regular rhythm and rate. Abdomen: Soft , minimally tender, minimally distended , bowel sounds are present. Surgical site is dry and clean Extremities: Normal to inspection, no edema no cyanosis Neurologic: Normal mental status,The patient is awake, alert and oriented . Results Result Diagram: 11/11/16 0435 11/11/16 0435 Results 24 hrs Laboratory Tests Test 11/11/16 04:35 White Blood Count 11.7 #H Red Blood Count 4.84 Hemoglobin 14.1 Hematocrit 42.9 Mean Corpuscular Volume 88.6 Mean Corpuscular Hemoglobin 29.1 Mean Corpuscular Hemoglobin Concent 32.9 Red Cell Distribution Width 13.6 Platelet Count 221 Mean Platelet Volume 11.1 H Neutrophils % 86.2 H Lymphocytes % 8.0 L Monocytes % 5.1 Eosinophils % 0.0 Basophils % 0.2 Nucleated Red Blood Cells % 0.0 Neutrophils # 10.1 H Lymphocytes # 0.9 Monocytes # 0.6 Eosinophils # 0.0 Basophils # 0.0 Nucleated Red Blood Cells # 0.0 Sodium Level 141 Potassium Level 4.3 Chloride Level 107 Carbon Dioxide Level 22 Anion Gap 16 Blood Urea Nitrogen 11 Creatinine 0.85 Glucose Level 144 # Calcium Level 9.2 Magnesium Level 1.8 Total Bilirubin 0.5 Direct Bilirubin 0.00 Indirect Bilirubin 0.5 Aspartate Amino Transf (AST/SGOT) 43 # Alanine Aminotransferase (ALT/SGPT) 27 Alkaline Phosphatase 51 Total Protein 6.9 Albumin 4.3 Globulin 2.60 Albumin/Globulin Ratio 1.65 Medications Medications Current Medications Ondansetron HCl (Zofran Inj) 4 mg Q6H PRN IV NAUSEA AND/OR VOMITING; Start at 23:00 Acetaminophen (Tylenol Tab) 650 mg Q6H PRN PO PAIN LEVEL 1-3 OR FEVER; Start at 23:00 Zolpidem Tartrate 5 mg 5 mg QHS PRN PO SLEEP; Start 11/08/16 at 23:00 Potassium Chloride/Dextrose/ Sod Cl (D5-1/2ns + KCl 20 Meq) 1,000 ml @ 100 mls/ hr Q10H IV Last administered on 11/11/16 05:54; Admin Dose 100 MLS/HR; Start 11/10/16 at 20:02 Acetaminophen/ Hydrocodone Bitart ([place] (5/325)) 1 tab Q4H PRN PO PAIN LEVEL 4 -7; Start 11/10/16 at 20:30 Acetaminophen/ Hydrocodone Bitart ([place] (5/325)) 2 tab Q4H PRN PO PAIN LEVEL 7 -10; Start 11/10/16 at 20:30 Hydromorphone HCl (Dilaudid) 0.5 mg Q2H PRN IV PAIN; Start 11/10/16 at 20:30 Hydromorphone HCl (Dilaudid) 1 mg Q2H PRN IV PAIN Last administered on 04:48; Admin Dose 1 MG; Start 11/10/16 at 20:30 Docusate Sodium (Colace) 100 mg BID PRN PO CONSTIPATION; Start 11/10/16 at 20: 30 Bisacodyl (Dulcolax Supp) 10 mg BID PRN ME CONSTIPATION; Start 11/10/16 at 20: 30 Sodium Biphosphate/ Sodium Phosphate (Fleet Enema) 133 ml BID PRN ME CONSTIPATION; Start 11/10/16 at 20:30 Famotidine (Pepcid Iv) 20 mg DAILY IV Last administered on 11/11/16 08:51; Admin Dose 20 MG; Start 11/11/16 at 09:00 Enoxaparin Sodium (Lovenox) 40 mg DAILY SC Last administered on 11/11/16 08:52 ; Admin Dose 40 MG; Start 11/11/16 at 09:00 KISHOR JORDAN MD Nov 11, 2016 13:03
[2016-11-11] MEDS: CEFAZOLIN 1 GM/50 ML (PMX) 50 ML IVPB SCH ×2 (14:27→21:38)
--- NOTE | 2016-11-11 16:12 | PN ---
Date/Time of Note Date/Time of Note DATE: 11/11/16 TIME: 16:08 Assessment/Plan Lines/Catheters IV Catheter Type (from Nrsg): Peripheral IV Alexander in Place (from Nrsg): No Assessment/Plan Assessment/Plan [facility] Progress Note Date of Service: 11/11/16 Today's Impression & Plan: Overall doing well post op without major issues. No major wound problems. Pain control is an issue (as expected given extent of the hernia). May benefit from one more day in the hospital. With above assessment, I've recommended the following for today: 1. Keep in house 2. Oral conversion 3. Increase activity 4. Increase ICS 5. Possible d/c in am 6. D/c instructions: "Please call [phone] if any of fever, nausea, vomiting, discharge from wound, wound redness, increase or sudden pain, blood in stool or vomit, or any other unusual signs or symptoms. Also, please call the same number in a few days to schedule an appointment for your follow up visit. Patient may remove dressings tomorrow. Showers OK starting tomorrow. No swimming , hot tub or bath for 2 weeks. No lifting more than 25 lbs for 8 weeks." Thank you again for your great care of this very pleasant patient and wonderful family. If there are any questions, please feel free to call me at [phone]. TOTAL VISIT TIME: 20 minutes of which more than half was spent in [id number] discussion with the patient, possibly including family, as well as coordination of care between multiple physicians and providers. Disclaimer: Inadvertent spelling or grammatical errors are likely due to EHR/ dictation software use and do not reflect on the overall quality of patient care. Updated Clinical Summary: This is a very pleasant 31-year-old gentleman with comorbidity of BMI 26.1 and an 8 history of right inguinal hernia with bowel within it, admitted through the emergency department at [facility] on 11/10/2016 with the same issue with his right inguinal hernia. S/p an otherwise uncomplicated but slightly difficult right inguinal hernia repair with mesh (10 cm x 15 cm Symbotex) with findings of large incarcerated but not strangulated and viable hernia contents mainly colon. COMORBIDITIES: 1. Right inguinal hernia, large, containing incarcerated colon, viable. S/p an otherwise uncomplicated but slightly difficult right inguinal hernia repair with mesh (10 cm x 15 cm Symbotex) with findings of large incarcerated but not strangulated and viable hernia contents mainly colon at [facility] on 11/10/16. 2. 8 month history of worsening right inguinal hernia. 3. Possible bladder calculus (1.3 cm calcified appearing density abutting the anterior wall of the bladder). 4. Mildly enlarged prostate measuring 4.5 cm with a 1.2 cm coarse calcification within the inferior aspect of the prostate which is indeterminate but may be related to chronic infectious/inflammatory etiologies. 5. Hyperdensity with punctate calcification within the distal appendix likely representing debris/appendicolith. 6. BMI 26.1. Subjective: No major events or complaints; + incisional abd pain and under control with medications; no n/v/d; no sob or cp; - flatus; - BM; - activity Objective: Vitals: See below Exam: GENERAL: On exam, the patient was laying in bed and appeared to be comfortable and in no acute distress. ABDOMEN: Soft, nontender and nondistended. Incision dressings are clean, dry and intact without any evidence of obvious underlying erythema, edema, discharge , or hernia. There are no peritoneal signs or guarding. SKIN: Skin appears to be pink and feels warm to touch. NEUROLOGIC: Patient is awake, alert, and follows commands appropriately. Exam/Review of Systems Vital Signs Vitals Vital Signs Date Time Temp Pulse Resp B/P Pulse Ox O2 Delivery O2 Flow Rate FiO2 11/11/16 08:52 98.7 76 20 103/55 97 11/11/16 08:00 Nasal Cannula 2.0 Intake and Output 11/10/16 11/10/16 11/11/16 15:00 23:00 07:00 Intake Total 800 ml 1500 ml 1150 ml Output Total 70 ml 400 ml Balance 800 ml 1430 ml 750 ml Results Result Diagram: 11/11/16 0435 11/11/16 0435 FLOR PANTOJA M.D. Nov 11, 2016 16:12
[2016-11-11 20:00] VITALS: BP 124/66; RESP 18
[2016-11-11] MEDS: HYDROCODONE/APAP (5/325) TAB PO PRN (21:38)
[2016-11-12] MEDS: D5W-0.45 NACL + KCL 20 MEQ 1,000 ML IV SCH ×2 (02:19→12:58)
[2016-11-12 05:25] LABS: ADD SCAN DIFF NO
[2016-11-12] MEDS: CEFAZOLIN 1 GM/50 ML (PMX) 50 ML IVPB SCH ×2 (05:28→14:46)
[2016-11-12 05:34] LABS: BASOPHILS % 0.5 % (0.0-2.0); EOSINOPHILS # 0.2 10^3/ul (0.0-0.5); EOSINOPHILS % 2.2 % (0.0-7.0); HEMATOCRIT 40.8 % (42.0-52.0); HEMOGLOBIN 13.5 g/dl (14.0-18.0); LYMPHOCYTES # 2.7 10^3/ul (0.8-2.9); LYMPHOCYTES % 31.7 % (15.0-51.0); MEAN CORPUSCULAR HEMOGLOBIN 29.7 pg (29.0-33.0); MEAN CORPUSCULAR HGB CONC 33.1 g/dl (32.0-37.0); MEAN CORPUSCULAR VOLUME 89.9 fl (82.0-101.0); MEAN PLATELET VOLUME 11.2 fl (7.4-10.4); MONOCYTE # 0.7 10^3/ul (0.3-0.9); MONOCYTES % 8.1 % (0.0-11.0); NEUTROPHIL # 4.8 10^3/ul (1.6-7.5); NEUTROPHILS % 57.3 % (39.0-77.0); PLATELET COUNT 201 10^3/UL (140-415); RED BLOOD COUNT 4.54 10^6/ul (4.70-6.10); RED CELL DISTRIBUTION WIDTH 13.4 % (11.5-14.5); WHITE BLOOD COUNT 8.4 10^3/ul (4.8-10.8)
[2016-11-12 06:18] LABS: CALCIUM 8.6 mg/dl (8.4-10.2); CREATININE 0.92 mg/dl (0.61-1.24)
[2016-11-12 08:19] VITALS: BP 112/71; RESP 19
[2016-11-12] MEDS: FAMOTIDINE 20 MG INJ IV SCH (09:17)
[2016-11-12] MEDS: HYDROCODONE/APAP (5/325) TAB PO PRN ×2 (09:17→14:50)
[2016-11-12] MEDS: ENOXAPARIN 40 MG/0.4 ML SYG SC SCH (09:18)
--- NOTE | 2016-11-12 13:34 | PN ---
Date/Time of Note Date/Time of Note DATE: 11/12/16 TIME: 13:33 Assessment/Plan Lines/Catheters IV Catheter Type (from Nrsg): Peripheral IV Alexander in Place (from Nrsg): No Assessment/Plan Assessment/Plan [facility] Progress Note Date of Service: 11/12/16 Today's Impression & Plan: Overall doing well post op without major issues. No major wound problems. Pain control is better. Ok to d/c home from my standpoint. With above assessment, I've recommended the following for today: 1. D/c home 2. F/u with PCP 3. F/u with me in 1-2 weeks in the office 4. D/c instructions: "Please call [phone] if any of fever, nausea, vomiting, discharge from wound, wound redness, increase or sudden pain, blood in stool or vomit, or any other unusual signs or symptoms. Also, please call the same number in a few days to schedule an appointment for your follow up visit. Patient may remove dressings tomorrow. Showers OK starting tomorrow. No swimming , hot tub or bath for 2 weeks. No lifting more than 25 lbs for 8 weeks." Thank you again for your great care of this very pleasant patient and wonderful family. If there are any questions, please feel free to call me at [phone]. TOTAL VISIT TIME: 20 minutes of which more than half was spent in [id number] discussion with the patient, possibly including family, as well as coordination of care between multiple physicians and providers. Disclaimer: Inadvertent spelling or grammatical errors are likely due to EHR/ dictation software use and do not reflect on the overall quality of patient care. Updated Clinical Summary: This is a very pleasant 31-year-old gentleman with comorbidity of BMI 26.1 and an 8 history of right inguinal hernia with bowel within it, admitted through the emergency department at [facility] on 11/10/2016 with the same issue with his right inguinal hernia. S/p an otherwise uncomplicated but slightly difficult right inguinal hernia repair with mesh (10 cm x 15 cm Symbotex) with findings of large incarcerated but not strangulated and viable hernia contents mainly colon. COMORBIDITIES: 1. Right inguinal hernia, large, containing incarcerated colon, viable. S/p an otherwise uncomplicated but slightly difficult right inguinal hernia repair with mesh (10 cm x 15 cm Symbotex) with findings of large incarcerated but not strangulated and viable hernia contents mainly colon at [facility] on 11/10/16. 2. 8 month history of worsening right inguinal hernia. 3. Possible bladder calculus (1.3 cm calcified appearing density abutting the anterior wall of the bladder). 4. Mildly enlarged prostate measuring 4.5 cm with a 1.2 cm coarse calcification within the inferior aspect of the prostate which is indeterminate but may be related to chronic infectious/inflammatory etiologies. 5. Hyperdensity with punctate calcification within the distal appendix likely representing debris/appendicolith. 6. BMI 26.1. Subjective: No major events or complaints; + incisional abd pain and under control with medications; no n/v/d; no sob or cp; + flatus; - BM; minimal activity Objective: Vitals: See below Exam: GENERAL: On exam, the patient was laying in bed and appeared to be comfortable and in no acute distress. ABDOMEN: Soft, nontender and nondistended. Incision dressings d/c'd and incisions are clean, dry and intact without any evidence of obvious erythema, edema, discharge, or hernia. There are no peritoneal signs or guarding. SKIN: Skin appears to be pink and feels warm to touch. NEUROLOGIC: Patient is awake, alert, and follows commands appropriately. Exam/Review of Systems Vital Signs Vitals Vital Signs Date Time Temp Pulse Resp B/P Pulse Ox O2 Delivery O2 Flow Rate FiO2 11/12/16 08:19 97.0 63 19 112/71 98 11/12/16 08:00 Nasal Cannula 2.0 Intake and Output 11/11/16 11/11/16 11/12/16 15:00 23:00 07:00 Intake Total 950 ml 1190 ml 1300 ml Output Total 1000 ml 1700 ml Balance 950 ml 190 ml -400 ml Results Result Diagram: 11/12/16 [id number] FLOR PANTOJA M.D. Nov 12, 2016 13:34
--- NOTE | 2016-11-12 14:50 | PDOCDIS ---
Discharge Instructions CONDITION Patient Condition: Good HOME CARE INSTRUCTIONS: Diet Instructions: Regular ACTIVITY: Activity Restrictions: No Restrictions Slowly Increase Activity Rest between Activity Avoid heavy lifting Do not Drive Do not operate Power Tool Avoid Heavy Housework Bathing Restrictions: Shower OTHER ORDERS: Other Orders: Please call [phone] if any of fever, nausea, vomiting, discharge from wound , wound redness, increase or sudden pain, blood in stool or vomit, or any other unusual signs or symptoms. Also, please call the same number in a few days to schedule an appointment for your follow up visit to follow up with the general surgeon Dr Pemberton Patient may remove dressings tomorrow. Showers OK starting tomorrow. No swimming , hot tub or bath for 2 weeks. No lifting more than 25 lbs for 8 weeks. Please schedule a follow up with your primary care doctor within 7 days NATALIE OLEA MD Nov 12, 2016 14:50
[2016-11-12] MEDS ORDERED: HYDR-3498 PO (14:51)
--- NOTE | 2016-11-12 14:52 | DS ---
Date/Time of Note Date/Time of Note DATE: 11/12/16 TIME: 14:52 Discharge Summary Admission/Discharge Info Admit Date/Time Nov 08, 2016 at 20:12 Discharge Date/Time Patient Condition: Good Consults general surgery Procedures 6. CT A/P No significant change from recent examination. 1. Large right inguinal hernia which contains the cecum, appendix, as well as the terminal ileum. There is mild stranding along the lateral aspect of the descending colon which may represent mild inflammatory changes. There is no evidence of small or large bowel obstruction. Correlate with physical examination to exclude incarceration. 2. There is a 1.3 cm calcific appearing density abutting the anterior wall of the bladder which may represent a bladder calculus versus other etiologies. Follow-up imaging may be performed as clinically warranted. Correlate clinically. 3. The prostate is mildly enlarged measuring 4.5 cm. There is a 1.2 cm coarse calcification within the inferior aspect of the prostate which is indeterminate but may be related to chronic infectious/inflammatory etiologies. 4. Hyperdensity with punctate calcification within the distal appendix likely representing debris/appendicolith. 6. OPERATION: 1. Laparoscopic right inguinal hernia repair with mesh (10 cm x 15 cm Symbotex) with findings of large incarcerated but not strangulated and viable hernia contents mainly colon. Hx of Present Illness The patient is a 31-year-old male with no significant medical history. The patient states that he has had pain in his right groin for the past 2 months. Today it was associated nausea and vomiting. In the ED, the patient had an abdominopelvic CT which showed a large right inguinal hernia which contained the cecum and appendix as well as terminal ileum. The patient denies any nausea or vomiting at this time. He has no other complaints. He has not had these symptoms prior to a few months ago. Hospital Course Pt seen by general surgery for his hernia. Underwent surgical repair 6.. Post op course uncomplicated. Pt cleared by general surgery for discharge 48 hours after procedure. Home Meds No Active Prescriptions or Reported Meds Follow-up Plan gen surg and PCP f/u Primary Care Provider Olvin Arzola MD Time spent on discharge: > 30 minutes Pending Labs Laboratory Tests Test 11/12/16 04:20 White Blood Count 8.410^3/ul (4.8-10.8) Red Blood Count 4.5410^6/ul (4.70-6.10) Hemoglobin 13.5g/dl (14.0-18.0) Hematocrit 40.8% (42.0-52.0) Mean Corpuscular Volume 89.9fl (82.0-101.0) Mean Corpuscular Hemoglobin 29.7pg (29.0-33.0) Mean Corpuscular Hemoglobin Concent 33.1g/dl (32.0-37.0) Red Cell Distribution Width 13.4% (11.5-14.5) Platelet Count 42540^3/UL (140-415) Mean Platelet Volume 11.2fl (7.4-10.4) Neutrophils % 57.3% (39.0-77.0) Lymphocytes % 31.7% (15.0-51.0) Monocytes % 8.1% (0.0-11.0) Eosinophils % 2.2% (0.0-7.0) Basophils % 0.5% (0.0-2.0) Nucleated Red Blood Cells % 0.0/100WBC (0.0-0.0) Neutrophils # 4.810^3/ul (1.6-7.5) Lymphocytes # 2.710^3/ul (0.8-2.9) Monocytes # 0.710^3/ul (0.3-0.9) Eosinophils # 0.210^3/ul (0.0-0.5) Basophils # 0.010^3/ul (0.0-0.1) Nucleated Red Blood Cells # 0.010^3/ul (0.0-0.0) Sodium Level 140mmol/L (135-144) Potassium Level 4.0mmol/L (3.5-5.1) Chloride Level 106mmol/L (97-110) Carbon Dioxide Level 27mmol/L (21-31) Anion Gap 11 (8-16) Blood Urea Nitrogen 10mg/dl (7-20) Creatinine 0.92mg/dl (0.61-1.24) Glucose Level 96mg/dl (70-220) Calcium Level 8.6mg/dl (8.4-10.2) NATALIE OLEA MD Nov 12, 2016 14:52
== END 2016-11-12 19:30 | disposition home or self-care (01) | DRG 352 ==
LOC: E/R 16:58 → MS1 20:12
PROVIDERS: ADMIT Internal Medicine; ATTEND Internal Medicine
PROC: 0YUA4JZ Supplement Bilateral Inguinal Region with Synthetic Substitute, Percutaneous Endoscopic Approach (ICD-10-PCS; principal; 2016-11-08)
DX: K40.90 Unilateral inguinal hernia, without obstruction or gangrene, not specified as recurrent (principal); N28.89 Other specified disorders of kidney and ureter; R10.31 Right lower quadrant pain; N21.0 Calculus in bladder; N40.0 Benign prostatic hyperplasia without lower urinary tract symptoms; Z87.442 Personal history of urinary calculi
CPT/HCPCS: 36415; 74177; 80048; 80053; 80061; 81001; 83036; 83690; 83735; 84100; 85025; 85610; 96374; 96375; 96376; J0131; J0690; J1100; J1170; J1650; J1885; J2250; J2270; J2405; J2710; J2765; J2795; J3010; J3480; J7030; J7050; Q9967

== ENCOUNTER 2016-11-20 15:15 | Outpatient (CLI) | payer OTHER ==
[~2016-11-20] VITALS: Ht 175.3 cm; Wt 79.5 kg
[~2016-11-20 15:15] MED LIST: HYDR-3498 PO
[2016-11-20 15:22] VITALS: BP 123/76; PULSE 79; RESP 18; Ht 175.3 cm; Wt 79.5 kg
--- NOTE | 2016-11-20 15:57 | PN ---
Date/Time of Note Date/Time of Note DATE: 11/20/16 TIME: 15:52 Outpatient Progress Note Chief Complaint Status post right inguinal herniorrhaphy/UTI/possible bladder stone HPI Status post right inguinal herniorrhaphy/patient has right inguinal hernia, patient had herniorrhaphy, patient complains of slight discomfort, no fever chill, no discharge, UTI/patient has slight frequency and urgency, goes to bathroom every 2 hours, and patient also noticed slight blood, no back pain, Possible bladder stone/patient has possible bladder stone, on CAT scan, no suprapubic discomfort or distention, Review of Systems Const: No Fever, no chills, no Wt. loss, no Fatigue, normal appetite, no diaphoresis. Eyes: No pain, no discharge, no redness, no visual change, no foreign body. ENT: No pain, no bleeding, no congestion, no sore throat, no dysphagia, no discharge or rhinitis. Lymph: No adenopathy, no tender nodes, no lymphedema. Resp: No SOB, no cough, no sputum, no wheezing, no chest pain. CV: No chest pain, no palpitaions, no DORSEY, no PND, no edema. GI: Normal appetite, no pain, no nausea, no vomiting, no diarrhea, no blood, no constipation right inguinal hernia repair, no redness, no discharge, no bleeding ,. : Mild frequency for last few days patient goes every 2 hours,, mild urgency , and slight dysuria, patient noticed blood in the urine today,, no flank pain, no discharge, no bleeding. Musc: No bone/joint pain, no back pain, no neck pain, no knee pain, no restricted ROM. Skin: No rash, no skin lesions, no erythema, no laceration, no bruising, no pruritus. Neuro: No ELIZABETH, no dizziness, no syncope, no seizure, no focal-weakness. Endo: No polyuria, no polydypsia, no dry-skin, no temp-intolerance. Psych: No hallucinations, no depression, no anxiety, no suicidal ideation. Ext: No edema, no pain, no ulcer, no weakness. Physical Exam Vital Signs Date Time Temp Pulse Resp B/P Pulse Ox O2 Delivery O2 Flow Rate FiO2 11/20/16 15:22 97.7 79 18 123/76 97 Room Air General Appearance: A 31 year-old male who appears well-developed, well- nourished, in no acute distress. HEENT: Head normocephalic, atraumatic. Pupils equal, round, reactive to light and accommodate. Sclerae are no jaundice. Nasal turbinates pink without erythema or nasal discharge. Mucous membranes pink and moist without lesions. Oropharynx clear without any exudate or discharge. NECK: Supple. Trachea midline, No thyromegaly, No cervical lymphadenopathy, No mass, No carotid bruits, No JVD, Carotid pulses 2+ bilaterally. PULMONARY: Clear to auscultaion bilaterally, No retractions, Chest expansion symmetric bilaterally, no rales, no ronchi, no dulness on percussion. CARDIAC: Normal SI and S2, Regular rate and rythm, no murmur, gallop, or rub. GASTROINTESTINAL: Abdomen is soft, non-tender, Non Rigid, No distention, Positive bowel sounds x4 quadrants, Liver normal. Right inguinal herniorrhaphy , minimal discomfort, No redness, no discharge, SKIN: Warm, dry, no rash, no bruise, no echmosis. No cellulitis at operative site, EXTREMITIES: Bilateral lower extremities normal, no edema, no phlabitus, pulse palpable, no contracture. MUSCULOSKELETAL: Spine Normal, Non-tender, Normal range of motion, No swelling, no deformity, no clubbing, or cyanosis, the patient has no edema to bilateral lower extremities, dorsalis pedis pulses palpable bilaterally. NEUROLOGIC: The patient is awake, alert, oriented, responding to yes/no questions appropriately, moving all extremities, cranial nerve intact, normal strenght, normal power, normal coordination, normal gait. Allergies Coded Allergies: No Known Allergy (Unverified , 11/08/16) PMH Right inguinal hernia/right inguinal herniorrhaphy, Possible bladder stone, Possible enlargement of prostate, Social Hx No smoking no drinking, Family Hx Noncontributory, Assessment/Plan Impression Status post right inguinal hernia repair UTI Possible bladder stone Possible enlargement of prostate Plan Patient has slight discomfort in the right groin, controlled with the medication , Patient advised not to lift up any heavy material, Patient has slight frequency urgency, and had blood in the urine, will give nitrofurantoin 100 mg twice daily for 1 week, Patient encouraged to follow with the surgery and primary care physician and possible urology, Medications Home Meds Active Scripts Hydrocodone Bit-Acetaminophen (Hydrocodone Bit-APAP) 5-325MG Tablet, 1 TAB PO Q4H Y for PAIN LEVEL 4-7 for 5 Days, #10 TAB Prov:NATALIE OLEA MD 11/12/16 ABRIL CARR MD Nov 20, 2016 15:56
== END 2016-11-20 17:00 | disposition home or self-care (01) ==
LOC: DCC 15:15
PROVIDERS: ATTEND Internal Medicine
DX: N39.0 Urinary tract infection, site not specified (principal); K40.90 Unilateral inguinal hernia, without obstruction or gangrene, not specified as recurrent

== ENCOUNTER 2016-11-26 14:48 | Outpatient (CLI) | payer OTHER ==
[~2016-11-26] VITALS: Ht 175.3 cm; Wt 79.1 kg
[2016-11-26 15:13] VITALS: Ht 175.3 cm; Wt 79.1 kg
[2016-11-26 15:14] VITALS: BP 117/73; PULSE 62; RESP 16
--- NOTE | 2016-11-26 16:18 | PN ---
Date/Time of Note Date/Time of Note DATE: 11/26/16 TIME: 16:10 Assessment/Plan Assessment/Plan Assessment/Plan [facility] Progress Note Date of Service: 11/26/16 Today's Impression & Plan: Overall doing well post op without major issues. No major wound problems. Pain control is good. Suspect small blood seen in urine is transient irritation (? from Alexander used in OR) and not need further w/u, but will leave in the capable hands of his PCP. Otherwise no indication for acute surgical intervention. These large inguinal hernias are often at high risk for postoperative complications including recurrence of hernia, hematoma formation in the scrotum , and other problems. So far, the patient seems to be doing well and I do not see any obvious sign of major postoperative complications. I did my best to reassure the patient and answered all his questions. He appears to understand and agreed with the plans. With above assessment, I've recommended the following for today: 1. F/u with PCP; possible need to investigate blood in urine if further occurrence (? urology consultation) 2. F/u with us prn Thank you again for your great care of this very pleasant patient and wonderful family. If there are any questions, please feel free to call me at [phone]. Nature of presenting problem: Moderate severity Disclaimer: Inadvertent spelling or grammatical errors are likely due to EHR/ dictation software use and do not reflect on the overall quality of patient care. Updated Clinical Summary: This is a very pleasant 31-year-old gentleman with comorbidity of BMI 26.1 and an 8 history of right inguinal hernia with bowel within it, admitted through the emergency department at [facility] on 11/10/2016 with the same issue with his right inguinal hernia. S/p an otherwise uncomplicated but slightly difficult right inguinal hernia repair with mesh (10 cm x 15 cm Symbotex) with findings of large incarcerated but not strangulated and viable hernia contents mainly colon. D/c home 11/12/16. COMORBIDITIES: 1. Right inguinal hernia, large, containing incarcerated colon, viable. S/p an otherwise uncomplicated but slightly difficult right inguinal hernia repair with mesh (10 cm x 15 cm Symbotex) with findings of large incarcerated but not strangulated and viable hernia contents mainly colon at [facility] on 11/10/16. 2. 8 month history of worsening right inguinal hernia. 3. Possible bladder calculus (1.3 cm calcified appearing density abutting the anterior wall of the bladder). 4. Mildly enlarged prostate measuring 4.5 cm with a 1.2 cm coarse calcification within the inferior aspect of the prostate which is indeterminate but may be related to chronic infectious/inflammatory etiologies. 5. Hyperdensity with punctate calcification within the distal appendix likely representing debris/appendicolith. 6. BMI 26.1. Subjective: No major events or complaints; no major incisional type pain complaints; no n/v/ d; no sob or cp; + flatus; + BM; + activity; reported seeing blood in his urine postoperatively and less now compared to before. Objective: Vitals: See below Exam: GENERAL: On exam, the patient was sitting in a chair and appeared to be comfortable and in no acute distress. ABDOMEN: Soft, nontender and nondistended. Incisions are clean, dry and intact without any evidence of obvious erythema, edema, discharge, or hernia. There are no peritoneal signs or guarding. SKIN: Skin appears to be pink and feels warm to touch. NEUROLOGIC: Patient is awake, alert, and follows commands appropriately. Exam/Review of Systems Vital Signs Vitals Vital Signs Date Time Temp Pulse Resp B/P Pulse Ox O2 Delivery O2 Flow Rate FiO2 11/26/16 15:14 97.4 62 16 117/73 98 Room Air FLOR PANTOJA M.D. Nov 26, 2016 16:17
== END 2016-11-26 16:45 | disposition home or self-care (01) ==
LOC: HPC 14:48
PROVIDERS: ATTEND Transplant Surgery
DX: K40.90 Unilateral inguinal hernia, without obstruction or gangrene, not specified as recurrent (principal); N40.0 Benign prostatic hyperplasia without lower urinary tract symptoms
CPT/HCPCS: G0463

== ENCOUNTER 2016-12-01 11:29 | Outpatient (CLI) | payer OTHER ==
[~2016-12-01] VITALS: Ht 175.3 cm; Wt 80.0 kg
[2016-12-01 11:37] VITALS: Ht 175.3 cm; Wt 80.0 kg
[2016-12-01 11:38] VITALS: BP 117/69; PULSE 73; RESP 18
--- NOTE | 2016-12-01 12:22 | PN ---
Date/Time of Note Date/Time of Note DATE: 12/01/16 TIME: 12:16 Outpatient Progress Note Chief Complaint Hematuria/status post herniorrhaphy HPI Hematuria/patient has hematuria for last 3 days, no fever chill, patient has slight burning sensation at the end of urination, patient did have CAT scan of the abdomen which did show possible bladder stone, no back pain, patient still has frequency, patient goes 8-10 times a day during the daytime, Status post herniorrhaphy/patient has herniorrhaphy, no pain at the site, patient has seen surgeon, Review of Systems Const: No Fever, no chills, no Wt. loss, no Fatigue, normal appetite, no diaphoresis. Eyes: No pain, no discharge, no redness, no visual change, no foreign body. ENT: No pain, no bleeding, no congestion, no sore throat, no dysphagia, no discharge or rhinitis. Lymph: No adenopathy, no tender nodes, no lymphedema. Resp: No SOB, no cough, no sputum, no wheezing, no chest pain. CV: No chest pain, no palpitaions, no DORSEY, no PND, no edema. GI: Normal appetite, no pain, no nausea, no vomiting, no diarrhea, no blood, no constipation. : Mild frequency, and urgency, no dysuria, patient has hematuria for 3 days, and blood at the end of the urination,, no flank pain, no discharge, Musc: No bone/joint pain, no back pain, no neck pain, no knee pain, no restricted ROM. Skin: No rash, no skin lesions, no erythema, no laceration, no bruising, no pruritus. Neuro: No ELIZABETH, no dizziness, no syncope, no seizure, no focal-weakness. Endo: No polyuria, no polydypsia, no dry-skin, no temp-intolerance. Psych: No hallucinations, no depression, no anxiety, no suicidal ideation. Ext: No edema, no pain, no ulcer, no weakness. Physical Exam Vital Signs Date Time Temp Pulse Resp B/P Pulse Ox O2 Delivery O2 Flow Rate FiO2 12/01/16 11:38 97.9 73 18 117/69 98 Room Air General Appearance: A 31 year-old male who appears well-developed, well- nourished, in no acute distress. HEENT: Head normocephalic, atraumatic. Pupils equal, round, reactive to light and accommodate. Sclerae are no jaundice. Nasal turbinates pink without erythema or nasal discharge. Mucous membranes pink and moist without lesions. Oropharynx clear without any exudate or discharge. NECK: Supple. Trachea midline, No thyromegaly, No cervical lymphadenopathy, No mass, No carotid bruits, No JVD, Carotid pulses 2+ bilaterally. PULMONARY: Clear to auscultaion bilaterally, No retractions, Chest expansion symmetric bilaterally, no rales, no ronchi, no dulness on percussion. CARDIAC: Normal SI and S2, Regular rate and rythm, no murmur, gallop, or rub. GASTROINTESTINAL: Abdomen is soft, non-tender, Non Rigid, No distention, Positive bowel sounds x4 quadrants, Liver normal. Right groin discomfort, minimal, SKIN: Warm, dry, no rash, no bruise, no echmosis. EXTREMITIES: Bilateral lower extremities normal, no edema, no phlabitus, pulse palpable, no contracture. MUSCULOSKELETAL: Spine Normal, Non-tender, Normal range of motion, No swelling, no deformity, no clubbing, or cyanosis, the patient has no edema to bilateral lower extremities, dorsalis pedis pulses palpable bilaterally. NEUROLOGIC: The patient is awake, alert, oriented, responding to yes/no questions appropriately, moving all extremities, cranial nerve intact, normal strenght, normal power, normal coordination, normal gait. Allergies Coded Allergies: No Known Allergy (Unverified , 11/08/16) PMH No change Social Hx No change Family Hx No change Assessment/Plan Impression Hematuria/status post herniorrhaphy/history of possible bladder stone, Plan Patient has still frequency urgency, and has a blood in the urine, patient just finished antibiotic, Thursday and patient still has frequency urgency and hematuria, UA culture and sensitivity, Patient to follow with the primary care physician and possibly urologist, Medications Home Meds Discontinued Scripts Hydrocodone Bit-Acetaminophen (Hydrocodone Bit-APAP) 5-325MG Tablet, 1 TAB PO Q4H Y for PAIN LEVEL 4-7 for 5 Days, #10 TAB Prov:NATALIE OLEA MD 11/12/16 ABRIL CARR MD Dec 01, 2016 12:22
== END 2016-12-01 17:00 | disposition home or self-care (01) ==
LOC: DCC 11:29
PROVIDERS: ATTEND Internal Medicine
DX: R31.9 Hematuria, unspecified (principal); Z87.442 Personal history of urinary calculi

== ENCOUNTER 2017-06-12 10:43 | Day surgery (SDC) | END 2017-06-12 17:30 | disposition home or self-care (01) ==